=== PATIENT | female | born 1960 | race African-American/Black ===

== ENCOUNTER 2016-09-22 03:04 | Emergency (ER) | payer SELFPAY ==
[2016-09-22 08:52] LABS: ABSOLUTE EOSINOPHILS # (AUTO) 0.1 10^3/uL (0.0-0.6); ABSOLUTE LYMPHOCYTES (AUTO) 1.5 10^3/uL (0.5-4.7); ABSOLUTE MONOCYTES (AUTO) 0.5 10^3/uL (0.1-1.4); ABSOLUTE NEUT (AUTO) 3.3 10^3/uL (1.7-8.2); BASOPHILS % (AUTO) 0.6 % (0-2); EOSINOPHILS % (AUTO) 2.5 % (0-6); HEMATOCRIT 34.4 % (36.0-47.0); HEMOGLOBIN 10.9 g/dL (12.0-15.5); HGB HCT DIFFERENCE -1.7; LYMPHOCYTES % (AUTO) 27.5 % (13-45); MEAN CORPUSCULAR HEMOGLOBIN 23.2 pg (27.0-33.4); MEAN CORPUSCULAR HGB CONC 31.8 g/dL (32.0-36.0); MEAN CORPUSCULAR VOLUME 73 fl (80-97); MONOCYTES % (AUTO) 9.3 % (3-13); RED BLOOD COUNT 4.71 10^6/uL (3.72-5.28); RED CELL DISTRIBUTION WIDTH 19.4 % (11.5-14.0); SEGMENTED NEUTROPHILS % (AUTO) 60.1 % (42-78); WHITE BLOOD COUNT 5.4 10^3/uL (4.0-10.5)
[2016-09-22 09:11] LABS: ALANINE AMINOTRANSFERASE 22 U/L (9-52); ALBUMIN 4.1 g/dL (3.5-5.0); ALKALINE PHOSPHATASE 111 U/L (38-126); ANION GAP 10 (5-19); ASPARTATE AMINO TRANSFERASE 20 U/L (14-36); BILIRUBIN,DIRECT 0.2 mg/dL (0.0-0.4); BILIRUBIN,TOTAL 0.5 mg/dL (0.2-1.3); BLOOD UREA NITROGEN 10 mg/dL (7-20); CALCIUM 9.9 mg/dL (8.4-10.2); CARBON DIOXIDE 26 mmol/L (22-30); CHLORIDE 105 mmol/L (98-107); CREATINE KINASE 164 U/L (30-135); CREATININE RESULT 0.64 mg/dL (0.52-1.25); GLUCOSE 88 mg/dL (75-110); POTASSIUM 4.3 mmol/L (3.6-5.0); TOTAL PROTEIN 7.2 g/dL (6.3-8.2)
--- NOTE | 2016-09-22 09:57 | ER Document Report ---
ED General - General Chief Complaint: Tremor Stated Complaint: LEG STIFFNESS Mode of Arrival: Ambulatory Information source: Patient Notes: 55-year-old female presents with complaints of right foot spasms. Patient denies any swelling denies any specific pain notes that it used to happen in her left foot but now her right foot will spasm up and down and then will result on its own. Patient notes when she walks around the spasming stops. Patient denies any chest pain shortness breath any DVT or PE risk factors or calf pain - HPI Onset: Other - Over the past 3 weeks Onset/Duration: Intermittent Quality of pain: No pain Severity: Mild Pain Level: Denies Associated symptoms: Other Exacerbated by: Denies Relieved by: Other - Walking Similar symptoms previously: Yes Recently seen / treated by doctor: No Past Medical History - Social History Smoking Status: Former Smoker Cigarette use (# per day): No Chew tobacco use (# tins/day): No Smoking Education Provided: No Frequency of alcohol use: None Drug Abuse: None Family History: Reviewed & Not Pertinent Renal/ Medical History: Denies: Hx Peritoneal Dialysis Review of Systems - Review of Systems Notes: REVIEW OF SYSTEMS: CONSTITUTIONAL : Denies fever, chills, or sweats. Denies recent illness. EENT: Denies eye, ear, throat, or mouth pain or symptoms. Denies nasal or sinus congestion or discharge. Denies throat, tongue, or mouth swelling or difficulty swallowing. CARDIOVASCULAR: Denies chest pain. Denies palpitations or racing or irregular heart beat. Denies ankle edema. RESPIRATORY: Denies cough, cold, or chest congestion. Denies shortness of breath, difficulty breathing, or wheezing. GASTROINTESTINAL: Denies abdominal pain or distention. Denies nausea, vomiting , or diarrhea. Denies blood in vomitus, stools, or per rectum. Denies black, tarry stools. Denies constipation. GENITOURINARY: Denies difficulty urinating, painful urination, burning, frequency, blood in urine, or discharge. FEMALE GENITOURINARY: Denies vaginal bleeding, heavy or abnormal periods, irregular periods. Denies vaginal discharge or odor. MUSCULOSKELETAL: Right foot spasm SKIN: Denies rash, lesions or sores. HEMATOLOGIC : Denies easy bruising or bleeding. LYMPHATIC: Denies swollen, enlarged glands. NEUROLOGICAL: Denies confusion or altered mental status. Denies passing out or loss of consciousness. Denies dizziness or lightheadedness. Denies headache. Denies weakness or paralysis or loss of use of either side. Denies problems with gait or speech. Denies sensory loss, numbness, or tingling. Denies seizures. PSYCHIATRIC: Denies anxiety or stress. Denies depression, suicidal ideation, or homicidal ideation. ALL OTHER SYSTEMS REVIEWED AND NEGATIVE. Dictation was performed using [employer] voice recognition software PHYSICAL EXAMINATION: GENERAL: Well-appearing, well-nourished and in no acute distress. HEAD: Atraumatic, normocephalic. EYES: Pupils equal round and reactive to light, extraocular movements intact, conjunctiva are normal. ENT: Nares patent, oropharynx clear without exudates. Moist mucous membranes. NECK: Normal range of motion, supple without lymphadenopathy LUNGS: Breath sounds clear to auscultation bilaterally and equal. No wheezes rales or rhonchi. HEART: Regular rate and rhythm without murmurs ABDOMEN: Soft, nontender, nondistended abdomen. No guarding, no rebound. No masses appreciated. Female : deferred Musculoskeletal: Normal range of motion, no pitting or edema. No cyanosis. NEUROLOGICAL: Cranial nerves grossly intact. Normal speech, normal gait. Normal sensory, motor exams PSYCH: Normal mood, normal affect. SKIN: Warm, Dry, normal turgor, no rashes or lesions noted. Physical Exam - Vital signs Vitals: Temp Pulse Resp BP Pulse Ox 97.7 F 90 18 141/88 H 96 09/22/16 03:42 09/22/16 03:42 09/22/16 03:42 09/22/16 03:42 09/22/16 03:42 Course - Re-evaluation Re-evalutation: 09/22/16 18:38 Physical examination history is not consistent with any life-threatening issues , I did check for rhabdo as well as a Y imbalance, none of which was noted. Given the patient's otherwise stable I will treat her with some Valium and have her follow-up with primary care physician After performing a Medical Screening Examination, I estimate there is LOW risk for INTRACRANIAL HEMORRHAGE, UNSTABLE SPINE FRACTURE, CENTRAL CORD SYNDROME, CAUDA EQUINA, THORACIC AORTIC DISSECTION, PNEUMOTHORAX, PERFORATED BOWEL, RUPTURED ABDOMINAL AORTIC ANEURYSM, ACUTE TENDON RUPTURE, COMPARTMENT SYNDROME, or OPEN FRACTURE, thus I consider the discharge disposition reasonable. Also, there is no evidence or peritonitis, sepsis, or toxicity. The patient and I have discussed the diagnosis and risks, and we agree with discharging home to follow-up with their primary doctor with the understanding that symptoms and presentations can change. We also discussed returning to the Emergency Department immediately if new or worsening symptoms occur. We have discussed the symptoms which are most concerning (e.g., bloody stool, fever, changing or worsening pain, vomiting) that necessitate immediate return. - Vital Signs Vital signs: Temp Pulse Resp BP Pulse Ox 98 F 69 20 151/71 H 100 09/22/16 10:02 09/22/16 10:02 09/22/16 10:02 09/22/16 10:02 09/22/16 10:02 - Laboratory Result Diagrams: 09/22/16 08:22 09/22/16 08:22 Laboratory results interpreted by me: 09/22/16 09/22/16 08:22 08:22 Hgb 10.9 L Hct 34.4 L MCV 73 L MCH 23.2 L MCHC 31.8 L RDW 19.4 H Creatine Kinase 164 H Discharge - Discharge Clinical Impression: Leg cramp Qualifiers: Laterality: right Qualified Code(s): R25.2 - Cramp and spasm Condition: Stable Disposition: HOME, SELF-CARE Instructions: Leg Pain Nonspecific ([facility]), Leg Cramps ([facility]) Additional Instructions: Follow up with your physician tomorrow for further care or return to the ED IMMEDIATELY if symptoms worsen or new concerns occur Prescriptions: Diazepam [Valium 5 mg Tablet] 5 mg PO QIDP PRN #15 tablet PRN Reason:
[2016-09-22 10:03] VITALS: BP 151/71
== END 2016-09-22 10:03 | disposition home or self-care (01) ==
LOC: ER 03:04
DX: R25.2 Cramp and spasm (principal); Z87.891 Personal history of nicotine dependence
CPT/HCPCS: 36415; 80053; 82550; 85025; 99284

== ENCOUNTER 2017-06-09 17:05 | Emergency (ER) | payer OTHER ==
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
[2017-06-09 18:26] VITALS: BP 194/86
== END 2017-06-09 18:24 | disposition home or self-care (01) ==
LOC: ER 17:05
DX: S16.1XXA Strain of muscle, fascia and tendon at neck level, initial encounter (principal); V49.50XA Passenger injured in collision with unspecified motor vehicles in traffic accident, initial encounter; R51 Headache; I10 Essential (primary) hypertension
CPT/HCPCS: 99283

== ENCOUNTER 2017-06-10 11:52 | Emergency (ER) | payer OTHER ==
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
[2017-06-10] MEDS ORDERED: PROCHLORPERAZINE MALEATE 5 MG TABLET PO ONE (12:50)
[2017-06-10] MEDS ORDERED: DIPHENHYDRAMINE HCL 50 MG CAPSULE PO ONE (12:50)
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
[2017-06-10 13:09] VITALS: BP 182/89
== END 2017-06-10 13:09 | disposition home or self-care (01) ==
LOC: ER 11:52
DX: S06.0X0A Concussion without loss of consciousness, initial encounter (principal); I10 Essential (primary) hypertension; R51 Headache; V87.7XXA Person injured in collision between other specified motor vehicles (traffic), initial encounter; Z87.891 Personal history of nicotine dependence
CPT/HCPCS: 70450; 99284

== ENCOUNTER 2017-09-10 21:19 | Emergency (ER) | payer SELFPAY ==
[2017-09-10] MEDS ORDERED: ONDANSETRON HCL INJ/PF 4 MG/2 ML SDV IV ONE (22:36)
--- NOTE | 2017-09-10 22:39 | ER Document Report ---
ED General - General Chief Complaint: Nausea/Vomiting Stated Complaint: VOMITING Time Seen by Provider: 09/10/17 22:27 Mode of Arrival: Medic Information source: Patient Notes: Patient states that after getting home from eating out at a local seafood restaurant she started to become dizzy with nausea and vomiting. Patient states she then became diaphoretic after vomiting. Patient denies any abdominal tenderness. Patient states that upon arrival to the emergency department she developed headache symptoms. Patient denies any diarrhea. Patient denies any chest pain or shortness of breath. Patient states that her dizzy symptoms and nausea worsened whenever she sits upright or stands. TRAVEL OUTSIDE OF THE [place] IN LAST 30 DAYS: No - HPI Onset: Just prior to arrival Onset/Duration: Gradual Quality of pain: Achy Pain Level: 3 Associated symptoms: Headache, Nausea, Vomiting. 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 denies: Fever EENT: No symptoms reported. denies: Blurred vision Cardiovascular: Dizziness - rotational movement. denies: Chest pain, Syncope Respiratory: No symptoms reported. denies: Cough, Short of breath Gastrointestinal: Nausea, Vomiting. denies: Abdominal pain, Diarrhea Genitourinary: No symptoms reported Female Genitourinary: No symptoms reported Musculoskeletal: No symptoms reported. denies: Back pain Skin: No symptoms reported Hematologic/Lymphatic: No symptoms reported Neurological/Psychological: Headaches Physical Exam - Vital signs Vitals: Temp Pulse Resp BP Pulse Ox 97.8 F 73 20 159/77 H 98 09/10/17 21:30 09/10/17 21:30 09/10/17 21:30 09/10/17 21:30 09/10/17 21:30 - General General appearance: Alert In distress: Mild - HEENT Head: Normocephalic, Atraumatic Eyes: Normal Conjunctiva: Normal Extraocular movements intact: Yes Pupils: PERRL Ears: Normal External canal: Normal Nasal: Normal Mouth/Lips: Normal Pharynx: Normal Neck: Normal, Supple. No: Lymphadenopathy, Meningismus - Respiratory Respiratory status: No respiratory distress Chest status: Nontender Breath sounds: Normal. No: Rales, Rhonchi, Stridor, Wheezing Chest palpation: Normal - Cardiovascular Rhythm: Regular Heart sounds: S1 appreciated, S2 appreciated Murmur: No - Abdominal Inspection: Obese Distension: No distension Bowel sounds: Normal Tenderness: Nontender Organomegaly: No organomegaly - Back Back: Normal, Nontender - Extremities General upper extremity: Normal inspection, Nontender, Normal strength General lower extremity: Normal inspection, Nontender, Normal strength - Neurological Neuro grossly intact: Yes Cognition: Normal [place] Coma Scale Eye Opening: Spontaneous [place] Coma Scale Verbal: Oriented Frank Coma Scale Motor: Obeys Commands [place] Coma Scale Total: 15 - Psychological Associated symptoms: Normal affect, Normal mood - Skin Skin Temperature: Warm Skin Moisture: Dry Skin Color: Normal Course - Re-evaluation Re-evalutation: 09/11/17 01:00 pt reports that nausea and vomiting as well as dizzy symptoms are improved. Patient does still complain of headache symptoms. Medications ordered. Patient has been able to ambulate in the room to the bathroom unassisted without difficulty. Patient without any focal neurologic deficit at this time. 09/11/17 02:[address] Glaser regarding patient presentation, agrees with vertigo diagnosis, no additional testing recommended. The patient presents with headache without signs of [employer] bleed, stroke, infection, or other serious etiology. The patient is neurologically intact. Given the extremely low risk of these diagnoses further testing and evaluation for these possibilities does not appear to be indicated at this time. The patient has been instructed to return if the symptoms worsen or change in any way. - Vital Signs Vital signs: Temp Pulse Resp BP Pulse Ox 98 F 77 13 157/78 H 98 09/11/17 03:37 09/11/17 03:37 09/11/17 03:37 09/11/17 03:37 09/11/17 03:37 - Laboratory Result Diagrams: 09/10/17 22:55 09/11/17 00:26 Laboratory results interpreted by me: 09/10/17 09/11/17 22:55 00:26 Hgb 11.2 L Hct 35.5 L MCV 76 L MCH 24.1 L MCHC 31.7 L RDW 19.6 H Glucose 111 H Labs- Entire Visit 09/10/17 09/10/17 09/10/17 22:55 22:55 22:55 WBC 8.2 RBC 4.66 Hgb 11.2 L Hct 35.5 L MCV 76 L MCH 24.1 L MCHC 31.7 L RDW 19.6 H Plt Count 172 Seg Neutrophils % 73.9 Lymphocytes % 18.6 Monocytes % 5.7 Eosinophils % 1.3 Basophils % 0.5 Absolute Neutrophils 6.1 Absolute Lymphocytes 1.5 Absolute Monocytes 0.5 Absolute Eosinophils 0.1 Absolute Basophils 0.0 Sodium Cancelled Potassium Cancelled Chloride Cancelled Carbon Dioxide Cancelled Anion Gap Cancelled BUN Cancelled Creatinine Cancelled Est GFR ( Amer) Cancelled Est GFR (Non-Af Amer) Cancelled Glucose Cancelled Calcium Cancelled Total Bilirubin Cancelled Direct Bilirubin Cancelled Neonat Total Bilirubin Cancelled Neonat Direct Bilirubin Cancelled Neonat Indirect Bili Cancelled AST Cancelled ALT Cancelled Alkaline Phosphatase Cancelled Creatine Kinase Cancelled CK-MB (CK-2) 0.30 Troponin I < 0.012 Total Protein Cancelled Albumin Cancelled 09/11/17 00:26 WBC RBC Hgb Hct MCV MCH MCHC RDW Plt Count Seg Neutrophils % Lymphocytes % Monocytes % Eosinophils % Basophils % Absolute Neutrophils Absolute Lymphocytes Absolute Monocytes Absolute Eosinophils Absolute Basophils Sodium 141.4 Potassium 3.7 Chloride 103 Carbon Dioxide 26 Anion Gap 12 BUN 13 Creatinine 0.70 Est GFR ( Amer) > 60 Est GFR (Non-Af Amer) > 60 Glucose 111 H Calcium 9.5 Total Bilirubin 0.4 Direct Bilirubin 0.2 Neonat Total Bilirubin Not Reportable Neonat Direct Bilirubin Not Reportable Neonat Indirect Bili Not Reportable AST 33 ALT 15 Alkaline Phosphatase 102 Creatine Kinase 78 CK-MB (CK-2) Troponin I Total Protein 7.1 Albumin 4.2 - Diagnostic Test Radiology reviewed: Reports reviewed Discharge - Discharge Clinical Impression: Vertigo, Hx of essential hypertension Nausea and vomiting Qualifiers: Vomiting type: unspecified Vomiting Intractability: unspecified Qualified Code( s): R11.2 - Nausea with vomiting, unspecified Condition: Stable Disposition: HOME, SELF-CARE Instructions: Antinausea Medication ([facility]), Headache ([facility]), Meclizine ([facility]), Vertigo ([facility]), Vomiting ([facility]) Additional Instructions: Return immediately for any new or worsening symptoms Followup with your primary care provider, call tomorrow to make a followup appointment Prescriptions: Meclizine HCl [Antivert 25 mg Tablet] 25 mg PO ASDIR PRN #15 tablet PRN Reason: Ondansetron HCl [Zofran 4 mg Tablet] 1 - 2 tab PO Q6 PRN #15 tablet PRN Reason: Forms: Return to Work Referrals: [facility] [Provider Group] - Follow up as needed [facility] [Provider Group] - Follow up as needed
[2017-09-10] MEDS ORDERED: MECLIZINE HCL 25 MG TABLET PO ONE (23:02)
[2017-09-10 23:16] LABS: ABSOLUTE EOSINOPHILS # (AUTO) 0.1 10^3/uL (0.0-0.6); ABSOLUTE LYMPHOCYTES (AUTO) 1.5 10^3/uL (0.5-4.7); ABSOLUTE MONOCYTES (AUTO) 0.5 10^3/uL (0.1-1.4); ABSOLUTE NEUT (AUTO) 6.1 10^3/uL (1.7-8.2); BASOPHILS % (AUTO) 0.5 % (0-2); EOSINOPHILS % (AUTO) 1.3 % (0-6); HEMATOCRIT 35.5 % (36.0-47.0); HEMOGLOBIN 11.2 g/dL (12.0-15.5); LYMPHOCYTES % (AUTO) 18.6 % (13-45); MEAN CORPUSCULAR HEMOGLOBIN 24.1 pg (27.0-33.4); MEAN CORPUSCULAR HGB CONC 31.7 g/dL (32.0-36.0); MEAN CORPUSCULAR VOLUME 76 fl (80-97); MONOCYTES % (AUTO) 5.7 % (3-13); PLATELET COUNT 172 10^3/uL (150-450); RED BLOOD COUNT 4.66 10^6/uL (3.72-5.28); RED CELL DISTRIBUTION WIDTH 19.6 % (11.5-14.0); SEGMENTED NEUTROPHILS % (AUTO) 73.9 % (42-78); TOTAL CELLS COUNTED % (AUTO) 100 %; WHITE BLOOD COUNT 8.2 10^3/uL (4.0-10.5)
[2017-09-10 23:48] LABS: TROPONIN I < 0.012 ng/mL
--- NOTE | 2017-09-10 23:50 | EKG REPORT ---
SEVERITY:- ABNORMAL ECG - SINUS RHYTHM NONSPECIFIC T ABNORMALITIES, LATERAL LEADS : Confirmed by: Tl Hathaway MD 10-Sep-2017 23:50:16
--- NOTE | 2017-09-11 00:34 | RADIOLOGY REPORT (SQ) ---
EXAM DESCRIPTION: CT HEAD WITHOUT CLINICAL HISTORY: 56 years Female, EM, vomiting COMPARISON: 06/10/2017 TECHNIQUE: No contrast. This exam was performed according to our departmental dose-optimization program, which includes automated exposure control, adjustment of the mA and/or kV according to patient size and/or use of iterative reconstruction technique. FINDINGS: No hemorrhage or infarct. No mass, mass effect, or midline shift. Brain and extra-axial structures appear intact. IMPRESSION: Normal CT of the head.
[2017-09-11 01:15] LABS: ALANINE AMINOTRANSFERASE 15 U/L (9-52); ALBUMIN 4.2 g/dL (3.5-5.0); ALKALINE PHOSPHATASE 102 U/L (38-126); ANION GAP 12 (5-19); ASPARTATE AMINO TRANSFERASE 33 U/L (14-36); BILIRUBIN,DIRECT 0.2 mg/dL (0.0-0.4); BILIRUBIN,TOTAL 0.4 mg/dL (0.2-1.3); BLOOD UREA NITROGEN 13 mg/dL (7-20); CALCIUM 9.5 mg/dL (8.4-10.2); CARBON DIOXIDE 26 mmol/L (22-30); CHLORIDE 103 mmol/L (98-107); CREATINE KINASE 78 U/L (30-135); GLUCOSE 111 mg/dL (75-110); POTASSIUM 3.7 mmol/L (3.6-5.0); SODIUM 141.4 mmol/L (137-145); TOTAL PROTEIN 7.1 g/dL (6.3-8.2)
[2017-09-11] MEDS ORDERED: KETOROLAC TROMETHAMINE INJ/PF 30 MG/1 ML SDV IV ONE (01:39)
[2017-09-11 03:41] VITALS: BP 157/78
--- NOTE | 2017-09-11 08:49 | EKG REPORT ---
SEVERITY:- ABNORMAL ECG - SINUS RHYTHM PROBABLE LVH WITH SECONDARY REPOL ABNRM : Confirmed by: Tl Hathaway MD 11-Sep-2017 08:48:25
== END 2017-09-11 03:37 | disposition home or self-care (01) ==
LOC: ER 21:19
DX: R42 Dizziness and giddiness (principal); I10 Essential (primary) hypertension; R11.2 Nausea with vomiting, unspecified; R61 Generalized hyperhidrosis
CPT/HCPCS: 93005 ×2; 99284; 96374; 96375; 36415; 82553; 82550; 85025; 80053; 84484; 70450; 93010 ×2; J1885; J2405